=== PATIENT | male | born 1995 | race African-American/Black ===

== ENCOUNTER 2022-05-25 13:31 | Emergency (ER) | payer MEDICAID, OTHER ==
[~2022-05-25] VITALS: Ht 190.5 cm; Wt 250.0 kg
[2022-05-25 14:23] LABS: Albumin 4.2 g/dL (3.4-5.0); BUN/Creatinine Ratio 8.7; Calcium 9.9 mg/dL (8.5-10.1); Hemoglobin 17.3 g/dL (13.5-17.5); Mean Corpuscular Hemoglobin 30.5 pg (28.0-32.0); Mean Corpuscular Hgb Conc. 33.9 g/dL (32.0-36.0); Potassium 4.1 mmol/L (3.5-5.1); Red Blood Cells 5.66 10^6/uL (4.5-5.90); Red Cell Distribution Width 14.3 % (11.8-14.3); White Blood Cell 5.8 10^3/uL (4.4-10.8)
[2022-05-25 14:26] LABS: Bilirubin, Total 0.6 mg/dL (0.2-1.0); Total Protein 8.3 g/dL (6.4-8.2)
[2022-05-25 14:43] LABS: Band Neutrophils % (manual) 0; Basophils % (manual) 0 (0.0-2.0); Blast Cells 0; Metamyelocytes % 0; Myelocytes % 0; Promyelocytes % 0; Reactive Lymphocytes 0
[2022-05-25 15:08] LABS: Eosinophils % (manual) 3 (0-7); Lymphocytes % (manual) 4 (10.0-50.0); Monocytes % (manual) 5 (0-12)
[2022-05-25] MEDS ORDERED: MORPHINE SULFATE 4 MG/ML SYR/VIAL IV ONE (18:00)
[2022-05-25] MEDS ORDERED: cefTRIAXone 1GM/50ML D5W 50 ML IV ONE (18:00)
[2022-05-25] MEDS ORDERED: ONDANSETRON HCL 4 MG/2 ML VIAL IV ONE (18:00)
[2022-05-25] MEDS ORDERED: metroNIDAZOLE 500MG/100ML 100 ML IV ONE (18:00)
[2022-05-25 18:11] LABS: Urine Blood Negative /uL (Negative)
[2022-05-25 23:32] VITALS: BP 155/99
== END 2022-05-26 00:15 | disposition short-term general hospital (02) ==
LOC: EDBD 13:31 → ER 13:31
DX: K85.90 Acute pancreatitis without necrosis or infection, unspecified (principal); R10.84 Generalized abdominal pain; Z88.0 Allergy status to penicillin; Z88.8 Allergy status to other drugs, medicaments and biological substances; Z20.822 Contact with and (suspected) exposure to COVID-19
CPT/HCPCS: 36415; 74176; 80053; 81003; 83605; 83690; 85007; 85027; 87040; 87426; 96365; 96366; 96368; 96375; 99284; J0696; J2270; J2405; J3490

== ENCOUNTER 2024-07-24 18:28 | Emergency (ER) | payer MEDICAID ==
[~2024-07-24] VITALS: Ht 188 cm; Wt 136.4 kg
--- NOTE | 2024-07-24 18:48 | ECG ---
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
--- NOTE | 2024-07-24 19:28 | DVH ---
EXAM: CT HEAD WITHOUT CONTRAST INDICATION: syncope head injury TECHNIQUE: CT of the head without intravenous contrast. Radiation Dose Information: CT Dose: CTDI volume is 65.13 mGy. Dose-length product is 1174.04 mGy*cm The dose indicators for CT are the volume Computed Tomography (CT) Dose Index (CTDIvol) and the Dose Length Product (DLP), and are measured in units of mGy and mGy-cm, respectively. These indicators are not patient dose, but values generated from the CT scanner acquisition factors. The report includes radiation exposure data for exposures received during this examination. COMPARISON: None FINDINGS: There is no evidence of acute intracranial hemorrhage, extra-axial collection, mass effect, midline s hift, herniation or hydrocephalus. The ventricles, sulci and cisterns are age appropriate. The sheppard-white differentiation is intact. Patchy periventricular and subcortical white matter hypoattenuation is nonspecific but may be related to small vessel ischemic disease. The visualized paranasal sinuses and mastoid air cells are clear. The surrounding soft tissues and osseous structures are unremarkable. IMPRESSION: 1. No acute intracranial hemorrhage 2. No CT findings of territorial ischemia 3. No CT findings of displaced skull fracture
--- NOTE | 2024-07-24 19:33 | ED.PDOC ---
History of Present Illness HPI Comments 28 y/o M with a history of hypertension and pancreatitis brought in by EMS from home evaluation of a syncopal episode was prior to arrival. Patient reports he donated plasma around 11:00 a.m. today he states was ambulating to the kitchen to get something to eat, became lightheaded and fainted. He remembers waking up on the kitchen floor after hitting his head. He is complaining of an occipital headache, neck pain, and chest tightness associated with shortness of breath. He denies any vision changes, focal weakness, nausea, vomiting, cough, congestion, fever or other injury. 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, Medications, Allergies Allergies: Coded Allergies: Penicillins (Verified Allergy, Unknown, 05/25/22) Uncoded Allergies: PRILS (Adverse Reaction, Unknown, LIP SWELLING, 05/25/22) Home Meds Active Scripts Ibuprofen Micronized (Ibuprofen) 800 Mg Tab, 800 MG PO Q8HPRN PRN, #30 TAB prn pain, take with food Prov:DEBRA SILVERMAN MD 07/24/24 Acetaminophen (Tylenol Extra Strength) 500 Mg Tab, 1000 MG PO Q6HP PRN, #30 TAB prn pain Prov:DEBRA SILVERMAN MD 07/24/24 Information Source: Patient, Emergency Med Personnel Mode of Arrival: Ambulatory Severity: Moderate Timing: Hours Duration: Since onset Prehospital treatment: 12 Lead EKG, Accucheck, Production Troubleshooter Past Medical History PAST MEDICAL HISTORY: Depression, HTN Past Medical History (Other): obesity Surgical History: Denies all surgeries Family History Family History: Reviewed,noncontributory to illness Social History Smoker: Cigarettes Alcohol: Occasionally Drugs: Marijuana Lives In: Home All Other Systems: Reviewed and Negative (Comprehensive systems review obtained and negative except for what is stated in the HPI.) Physical Exam General Appearance: No Apparent Distress, Obese HEENT: PERRL/EOMI, Other (Moist mucous membranes. Occipital soft tissue tenderness) Neck: Full Range of Motion, Normal Inspection, Supple, Other (Midline and cervical paraspinal neck muscle tenderness to palpation. No crepitus or step- off.) Respiratory: Chest Non-Tender, Lungs Clear, No Accessory Muscle Use, No Respiratory Distress, Normal Breath Sounds Cardiovascular: No Edema, No JVD, Regular Rate/Rhythm Breast Exam: Deferred Gastrointestinal: Non Tender, Soft Genitalia: Deferred Pelvic: Deferred Rectal: Deferred Extremities: Normal inspection, Normal range of motion, Non-tender, No pedal edema Neurologic: Alert (Oriented x4), Normal Affect, Normal Mood, Other (Moves all extremities. No gross focal deficit.) Cerebellar Function: NOT DONE Reflexes: NOT DONE Skin: Dry, Normal Color, Warm Lymphatic: NOT DONE Was a procedure done? Was a procedure done?: No EKG EKG : Pulse Rate (adult): 87 Comments Sinus rhythm, rate 87, normal intervals, normal axis, normal QRS, inferior T- wave inversion with other nonspecific T changes. Differential Dx Considerations may include: Vasovagal syncope, hypovolemia/orthostasis, dehydration, electrolyte imbalance, anemia, arrhythmia, ACS, DE, skull fracture, C-spine fracture, CVA, TIA, intracranial hemorrhage, among others X-Ray, Labs, Meds, VS Vital Signs Date Time Temp Pulse Resp B/P (MAP) Pulse Ox O2 Delivery O2 Flow Rate FiO2 07/24/24 23:57 87 19 99 Room Air* 0 21 07/24/24 23:51 98.1 87 19 131/63 (85) 97 98.1 07/24/24 19:33 87 07/24/24 18:42 87 07/24/24 18:30 98.5 81 18 119/72 (88) 96 Lab Test 07/24/24 21:52 07/24/24 19:18 Range/Units Troponin I High Sensitivity 3 L 4 </=54 ng/L White Blood Count 6.1 4.4-10.8 10^3/uL Red Blood Count 5.71 4.5-5.90 10^6/uL Hemoglobin 16.2 13.5-17.5 g/dL Hematocrit 47.9 41.0-53.0 % Mean Corpuscular Volume 83.9 80.0-100.0 fL Mean Corpuscular Hemoglobin 28.4 28.0-32.0 pg Mean Corpuscular Hemoglobin Concent 33.9 32.0-36.0 g/dL Red Cell Distribution Width 16.1 H 11.8-14.3 % Platelet Count 177 140-450 10^3/uL Mean Platelet Volume 8.6 6.9-10.8 fL Neutrophils (%) (Auto) 59.9 37.0-80.0 % Lymphocytes (%) (Auto) 21.1 10.0-50.0 % Monocytes (%) (Auto) 9.0 0.0-12.0 % Eosinophils (%) (Auto) 8.9 H 0.0-7.0 % Basophils (%) (Auto) 1.1 0.0-2.0 % Neutrophils # (Auto) 3.7 1.6-8.6 10 ^3/uL Lymphocytes # (Auto) 1.3 0.4-5.4 10 ^3/uL Monocytes # (Auto) 0.6 0-1.3 10 ^3/uL Eosinophils # (Auto) 0.5 0-0.8 10 ^3/uL Basophils # (Auto) 0.1 0-0.2 10 ^3/uL Nucleated Red Blood Cells 0.1 % Sodium Level 141 136-145 mmol/L Potassium Level 4.0 3.5-5.1 mmol/L Chloride Level 108 H 98-107 mmol/L Carbon Dioxide Level 25 20-31 mmol/L Anion Gap 8 5-15 Blood Urea Nitrogen 12 9-23 mg/dL Creatinine 1.18 0.700-1.30 mg/dL Glomerular Filtration Rate Calc 87 >90 mL/min BUN/Creatinine Ratio 10.2 10.0-20.0 Serum Glucose 107 H 74-106 mg/dL Calcium Level 9.1 8.7-10.4 mg/dL Total Bilirubin 0.3 0.2-1.0 mg/dL Aspartate Amino Transferase (AST) 21 13-40 U/L Alanine Aminotransferase (ALT) 37 7-40 U/L Alkaline Phosphatase 100 46-116 U/L B-Type Natriuretic Peptide 18.79 0-100 pg/mL Total Protein 5.7 5.7-8.2 g/dL Albumin 4.2 3.2-4.8 g/dL Current Medications Medications (Trade) Dose Ordered Sig/Cyrus Route Start Time Stop Time Status Last Admin Sodium Chloride 1,000 ml @ 1,000 mls/hr Q1H ONCE IV 07/24/24 19:00 07/24/24 19:59 DC 07/24/24 19:38 Acetaminophen/ Hydrocodone Bitart ([place] 5/325MG Tab) 2 tab ONCE ONCE PO 07/24/24 19:00 07/24/24 19:01 DC 07/24/24 19:44 Ondansetron HCl (Zofran) 4 mg ONCE ONCE IV 07/24/24 19:00 07/24/24 19:01 DC 07/24/24 19:44 PROCEDURE(s): HWOCT - HEAD WITHOUT CONTRAST REASON: syncope head injury ORDER NUMBER(s): [id number], ACCESSION NUMBER(s): [id number] EXAM: CT HEAD WITHOUT CONTRAST INDICATION: syncope head injury TECHNIQUE: CT of the head without intravenous contrast. Radiation Dose Information: CT Dose: CTDI volume is 65.13 mGy. Dose-length product is 1174.04 mGy*cm The dose indicators for CT are the volume Computed Tomography (CT) Dose Index (CTDIvol) and the Dose Length Product (DLP), and are measured in units of mGy and mGy-cm, respectively. These indicators are not patient dose, but values generated from the CT scanner acquisition factors. The report includes radiation exposure data for exposures received during this examination. COMPARISON: None FINDINGS: There is no evidence of acute intracranial hemorrhage, extra-axial collection, mass effect, midline shift, herniation or hydrocephalus. The ventricles, sulci and cisterns are age appropriate. The sheppard-white differentiation is intact. Patchy periventricular and subcortical white matter hypoattenuation is nonspecific but may be related to small vessel ischemic disease. The visualized paranasal sinuses and mastoid air cells are clear. The surrounding soft tissues and osseous structures are unremarkable. IMPRESSION: 1. No acute intracranial hemorrhage 2. No CT findings of territorial ischemia 3. No CT findings of displaced skull fracture EDURE(s): CS2 - CERVICAL WITHOUT CONTRAST REASON: syncope neck pain ORDER NUMBER(s): [id number], ACCESSION NUMBER(s): [id number] EXAM: CT CERVICAL WITHOUT CONTRAST HISTORY: syncope neck pain COMPARISON: None CTDIvol 25.7 mGy, DLP 731.38 mGy*cm. TECHNIQUE: Multiple axial CT images of the spine were obtained using bone algorithm. Axial and coronal reformatting was done. Bone and soft tissue windows were reviewed. FINDINGS: No CT evidence of definite acute fracture, spinal dislocation, or significant appearing acute subluxation is seen. The visualized paraspinal soft tissues are grossly unremarkable. IMPRESSION: No definite CT evidence of acute fracture or dislocation of the bony cervical spine. EDURE(s): CXRP - CHEST PORTABLE REASON: chest pain, syncope ORDER NUMBER(s): [id number], ACCESSION NUMBER(s): [id number] CHEST RADIOGRAPH Indication: chest pain, syncope Technique: Single frontal view of the chest was obtained Comparison: None FINDINGS: Lines and Tubes: None Lungs: No focal consolidation. Pleura: No effusion. No pneumothorax. Cardiomediastinal contours: Unremarkable Bones: No acute osseous abnormality. IMPRESSION: No acute cardiopulmonary disease. X-Ray, Labs, Meds, VS Comment 28-year-old male with a history of hypertension brought in by EMS from home status post syncopal episode and complaining of a headache and neck pain as well as chest tightness Vitals unremarkable Exam remarkable for occipital soft tissue tenderness and midline and cervical paraspinal soft tissue tenderness Rhythm strip independently interpreted by me: Sinus rhythm, rate 87, no ectopy. CT head unremarkable CT C-spine unremarkable Chest x-ray unremarkable CBC, metabolic panel, BNP and 2 serial troponins unremarkable for any abnormality of acute significance Patient treated with the following in the ED: 1 L 0.9 normal saline IV bolus, [place] 5/325 mg 2 tabs p.o., Zofran 4 mg IV On re-evaluation, patient states headache and neck pain have improved. Vitals were stable. He is neurologically intact. Hospitalization was considered, however patient had rapid improvement of symptoms with treatment in the ED, and I no longer feel hospitalization is necessary. Patient now appears stable for discharge with close outpatient follow-up with his primary physician. Rx Tylenol, ibuprofen Time of 1ST Reevaluation: 19:20 Reevaluation 1ST: Unchanged Time of 2ND Reevaluation: 22:19 Patient Education/Counseling: Diagnosis, Treatment Family Education/Counseling: No Family Present Departure 1 Departure Time of Disposition: 22:19 Impression: Primary Impression: Syncope Qualified Codes: R55 - Syncope and collapse Additional Impressions: Head injury Qualified Codes: S09.90XA - Unspecified injury of head, initial encounter Neck strain Qualified Codes: S16.1XXA - Strain of muscle, fascia and tendon at neck level, initial encounter Disposition: HOME / SELF CARE / HOMELESS Condition: Stable Additional Instructions: Your blood tests were unremarkable. Your CT scans and chest x-ray were unremarkable. I have prescribed pain medication to take at home. Follow-up with your primary doctor in 1-2 days. e-Prescriptions Ibuprofen Micronized (Ibuprofen) 800 Mg Tab 800 MG PO Q8HPRN PRN, #30 TAB prn pain, take with food Prov: DEBRA SILVERMAN MD 07/24/24 Acetaminophen (Tylenol Extra Strength) 500 Mg Tab 1000 MG PO Q6HP PRN, #30 TAB prn pain Prov: DEBRA SILVERMAN MD 07/24/24 Discharged With: Self Critical Care Note Critical Care Time?: No Stability Stability form required: No Heart Score Heart Score: Heart Score Response (Comments) Value History Slightly Suspicious [address]-Deviation 2 Age <45 0 Risk Factors 1 or 2 risk factors 1 Troponin Normal limit 0 Total 3 I personally scribed for DEBRA SILVERMAN MD ([email or web address]) on 07/24/24 at 19:33. Electronically submitted by Desmond Ramirez ([email or web address]). DEBRA SILVERMAN MD Jul 24, 2024 19:33
[2024-07-24] MEDS: SODIUM CHLORIDE 0.9% 1,000 ML IV ONE (19:38)
[2024-07-24] MEDS: ONDANSETRON HCL 4 MG/2 ML VIAL IV ONE (19:44)
[2024-07-24] MEDS: HYDROcodone-ACET 5/325MG TAB PO ONE (19:44)
[2024-07-24 20:00] LABS: Basophils # (auto) 0.1 10 ^3/uL (0-0.2); Basophils % (auto) 1.1 % (0.0-2.0); Eosinophils # (auto) 0.5 10 ^3/uL (0-0.8); Eosinophils % (auto) 8.9 % (0.0-7.0); Hematocrit 47.9 % (41.0-53.0); Hemoglobin 16.2 g/dL (13.5-17.5); Lymphocytes # (auto) 1.3 10 ^3/uL (0.4-5.4); Lymphocytes % (auto) 21.1 % (10.0-50.0); Mean Corpuscular Hemoglobin 28.4 pg (28.0-32.0); Mean Corpuscular Hgb Conc. 33.9 g/dL (32.0-36.0); Mean Corpuscular Volume 83.9 fL (80.0-100.0); Monocytes # (auto) 0.6 10 ^3/uL (0-1.3); Neutrophils # (auto) 3.7 10 ^3/uL (1.6-8.6); Neutrophils % (auto) 59.9 % (37.0-80.0); Nucleated Red Blood Cells % 0.1 %; Platelet Count (auto) 177 10^3/uL (140-450); Red Blood Cells 5.71 10^6/uL (4.5-5.90); Red Cell Distribution Width 16.1 % (11.8-14.3); White Blood Cell 6.1 10^3/uL (4.4-10.8)
--- NOTE | 2024-07-24 20:03 | DVH ---
EXAM: CT CERVICAL WITHOUT CONTRAST HISTORY: syncope neck pain COMPARISON: None CTDIvol 25.7 mGy, DLP 731.38 mGy*cm. TECHNIQUE: Multiple axial CT images of the spine were obtained using bone algorithm. Axial and coron al reformatting was done. Bone and soft tissue windows were reviewed. FINDINGS: No CT evidence of definite acute fracture, spinal dislocation, or significant appearing acute subluxa tion is seen. The visualized paraspinal soft tissues are grossly unremarkable. IMPRESSION: No definite CT evidence of acute fracture or dislocation of the bony cervical spine.
[2024-07-24 20:26] LABS: Alanine Aminotransferase 37 U/L (7-40); Alkaline Phosphatase 100 U/L (46-116); Anion Gap 8 (5-15); Aspartate Aminotransferase 21 U/L (13-40); BUN/Creatinine Ratio 10.2 (10.0-20.0); Blood Urea Nitrogen 12 mg/dL (9-23); Calcium 9.1 mg/dL (8.7-10.4); Carbon Dioxide 25 mmol/L (20-31); Sodium 141 mmol/L (136-145)
[2024-07-24 20:27] LABS: Albumin 4.2 g/dL (3.2-4.8)
[2024-07-24 20:28] LABS: Bilirubin, Total 0.3 mg/dL (0.2-1.0); Chloride 108 mmol/L (98-107); Glucose 107 mg/dL (74-106); Total Protein 5.7 g/dL (5.7-8.2)
[2024-07-24] MEDS ORDERED: IBUP-1455 PO (22:22)
[2024-07-24] MEDS ORDERED: ACET-1304 PO (22:22)
[2024-07-24 23:51] VITALS: BP 131/63; TEMP 98.1
[2024-07-24 23:57] VITALS: PULSE 87; RESP 19; O2SAT 99
== END 2024-07-24 23:58 | disposition home or self-care (01) ==
LOC: EDBD 18:28 → ER 18:31
DX: S09.90XA Unspecified injury of head, initial encounter (principal); S16.1XXA Strain of muscle, fascia and tendon at neck level, initial encounter; I10 Essential (primary) hypertension; F17.210 Nicotine dependence, cigarettes, uncomplicated; F12.90 Cannabis use, unspecified, uncomplicated; Z88.0 Allergy status to penicillin; Z88.8 Allergy status to other drugs, medicaments and biological substances; W22.8XXA Striking against or struck by other objects, initial encounter; Y93.89 Activity, other specified; Y92.89 Other specified places as the place of occurrence of the external cause; Y99.8 Other external cause status
CPT/HCPCS: 36415; 70450; 71045; 72125; 80053; 83880; 84484; 85025; 93005; 96361; 96374; 99285; J2405; J7030